=== PATIENT | male | born 1950 | race Caucasian/White ===

== ENCOUNTER → 2016-10-23 | Outpatient (CLI) | payer OTHER ==
[~2016-10-23] MED LIST: ACET-24 PO; ASPCH81 PO; ASPEC81 PO; ASPI81TA28 PO; ATEN-173 PO; CLB200 PO; FRRG PO; GLC/500 PO; MULT-890 PO; ONDA8TAB6 PO; OXYSR10 PO; PRLSR20 PO; RXC5 PO; SIMV40TA2 PO
[2016-10-23 17:46] LABS: BLOOD UREA NITROGEN 19 mg/dl (7-18); BUN/CREATININE RATIO 17.7 (10-20); CALCIUM 9.1 mg/dl (8.5-10.1); CARBON DIOXIDE 26 mmol/L (21-32); CHLORIDE 108 mmol/L (98-107); GLUCOSE 100 mg/dl (70-99); POTASSIUM 4.4 mmol/L (3.5-5.1); SODIUM 143 mmol/L (136-145)
[2016-10-24 06:00] LABS: ESTIMATED AVERAGE GLUCOSE 151 mg/dl; HA1C FLAG Normal (Normal)
--- NOTE | 2016-11-26 11:13 | History & Physical Bridge Note ---
H&P Re-Evaluation Bridge Note: I have examined the patient, reviewed the History & Physical and in the interval since the performance of the History & Physical I have noted the following changes of clinical significance: No changes noted
== END | disposition home or self-care (01) ==
LOC: C.LABPVFM 11:25
PROVIDERS: ATTEND Nurse Practitioner
DX: E11.9 Type 2 diabetes mellitus without complications (principal)

== ENCOUNTER 2017-01-21 06:52 | Inpatient (IN) | payer OTHER ==
[2017-01-12 13:00] VITALS: BMI 34.0
[2017-01-12 13:18] LABS: BASO % 0.4 %; BASO ABS # 0.03 K/uL (0-0.2); COMPLETE YES; EOS % 1.5 %; HEMATOCRIT 43.2 % (42-52); IG% 0.1 %; LYMPH % 32.7 %; LYMPH ABS # 2.23 K/uL (1.2-3.4); MEAN CELL VOLUME 83.7 fL (80-100); MEAN CORPUSCULAR HEMOGLOBIN 26.9 pg (25-34); MEAN CORPUSCULAR HGB CONC 32.2 g/dl (32-36); MEAN PLATELET VOLUME 10.1 fL (7.4-10.4); MONO % 10.1 %; NEUT % 55.2 %; PLATELET COUNT 193 K/uL (130-400); RED BLOOD COUNT 5.16 M/uL (4.7-6.1); WHITE BLOOD COUNT 6.82 K/uL (4.8-10.8)
[2017-01-12 13:28] LABS: ESTIMATED AVERAGE GLUCOSE 143 mg/dl; HA1C FLAG Normal (Normal)
[2017-01-12 13:32] LABS: PARTIAL THROMBOPLASTIN RATIO 1.1; PROTHROMBIN TIME (PATIENT) 10.3 SECONDS (9.0-12.0)
--- NOTE | 2017-01-12 13:35 | PAT Medication Instructions ---
Service Date Jan 12, 2017. Current Home Medication List Aspirin (Aspirin Ec), 81 MG PO HS Atenolol (Tenormin), 12.5 MG PO QPM Metformin Hcl (Glucophage), 500 MG PO BID Omeprazole (Prilosec), 20 MG PO QAM Simvastatin (Zocor), 40 MG PO QPM Medication Instructions For Your Scheduled Surgery - Hold the following medications 48 hours prior to surgery: Metformin Hcl (Glucophage), 500 MG PO BID - Take the following medications the morning of surgery with a sip of water OTHERWISE NOTHING TO EAT OR DRINK AFTER MIDNIGHT: Omeprazole (Prilosec), 20 MG PO QAM - Take the following medications as scheduled the night before surgery: Aspirin (Aspirin Ec), 81 MG PO HS Atenolol (Tenormin), 12.5 MG PO QPM Simvastatin (Zocor), 40 MG PO QPM If you have any questions please call us at [phone] or [phone] or [phone]
[2017-01-12 14:59] LABS: URINE APPEARANCE CLEAR (CLEAR); URINE BILIRUBIN NEG (NEG); URINE COLOR YELLOW; URINE NITRITE NEG (NEG); URINE PH 6.5 (4.5-7.5); URINE SPECIFIC GRAVITY 1.033 (1.000-1.030); UROBILINOGEN NEG (NEG)
[2017-01-12 15:03] LABS: MANUAL MICROSCOPIC REQUIRED? NO; REVIEW REQ? NO
[2017-01-12 15:12] LABS: BUN/CREATININE RATIO 18.5 (10-20); CALCIUM 9.1 mg/dl (8.5-10.1); POTASSIUM 3.9 mmol/L (3.5-5.1)
--- NOTE | 2017-01-20 14:33 | History and Physical ---
History & Physical Date Jan 20, 2017. Chief Complaint Left knee pain History of Present Illness The patient is a 66 year old male with complaints of left knee pain and disability. He's had previous successful right total knee arthroplasty which has done well. he has failed conservative care for his left knee and desires to proceed with left total knee arthoplasty Past Medical/Surgical History Medical Problems: (1) Right knee DJD Additional History Hepatic Disease: No Endocrine Disorder: Yes (Type II DM) Kidney Disease: No Hypertension: Yes Heart Disease: No Bleeding Tendencies: No Infectious Diseases: No Other: Hypercholesterolemia Allergies Coded Allergies: NO KNOWN DRUG ALLERGIES (Verified Allergy, Unknown, NONE, 01/12/17) Tuna (Verified Adverse Reaction, Unknown, NAUSEA AND VOMITING, 01/12/17) Home Medications Scheduled Aspirin (Aspirin Ec), 81 MG PO HS Atenolol (Tenormin), 12.5 MG PO QPM Metformin Hcl (Glucophage), 500 MG PO BID Omeprazole (Prilosec), 20 MG PO QAM Simvastatin (Zocor), 40 MG PO QPM Physical Examination Skin: warm/dry Eyes: normal inspection, EOMI ENT: normal ENT inspection Head: normocephalic Neck: supple, no adenopathy Respiratory/Chest: lungs clear Cardiovascular: regular rate, rhythm Abdomen / GI: normal bowel sounds, non tender Extremities: + pertinent finding (Left knee varus aligned, medial compartment pain, ROM ~ 0-125 degrees) Addiitonal Comments: Xrays: left knee varus aligned, bone on bone arthritis medial compartment with osteophytes, osteophytes PF joint Diagnosis Left knee arthritis Plan of Treatment Left total knee arthroplasty
[~2017-01-21] VITALS: Ht 165.1 cm; Wt 92.9 kg
[2017-01-21] VITALS (11 sets, daily range): BP systolic 100–148; BP diastolic 63–82; PULSE 66–77; TEMP 34.8–36.7; O2SAT 93–97; Ht 165.1 cm; Wt 92.9 kg
[~2017-01-21 06:52] MED LIST changes: -ACET-24 PO; +ACETAMINOPHEN 500 MG TAB PO SCH; -ASPCH81 PO; -ASPEC81 PO; +BUPIVACAINE 0.25% 30 ML VIAL ONE; +BUPIVACAINE 0.5 % 5 MG/1 ML PF 10ML VIAL ONE; +CEFAZOLIN 2000 MG/60 ML D5W 60 ML IV SCH; -CLB200 PO; +CeleBREX 200 MG CAP PO SCH; +DEXAMETHASONE 4 MG TAB PO SCH; -FRRG PO; +GABAPENTIN 300 MG CAP PO SCH; +LACTATED RINGER'S 1000ML 1,000 ML IV SCH; +LACTATED RINGER'S 1000ML 500 ML IV ONE; +METOCLOPRAMIDE HCL 10 MG TAB PO SCH; +MISSING PHYSICIAN SIGNATURE ON ORDER SCH; -MULT-890 PO; -ONDA8TAB6 PO; -OXYSR10 PO; +ROPIVACAINE 5MG/ML 30 ML 150 MG, BUPIVACAINE/EPINEPHR 0.5% MPF 30 ML, KETOROLAC TROMETH... INFIL SCH; -RXC5 PO
[2017-01-21] MEDS ORDERED: EpHEDrine SULFATE INJ 50 MG/ML AMP IV PRN (08:00)
[2017-01-21] MEDS ORDERED: ONDANSETRON INJ 2 MG/ML 2 ML VIAL IV PRN ×2 (08:00→12:00)
[2017-01-21] MEDS ORDERED: ATROPINE SULFATE 0.1 MG/ML 5ML SYR IV PRN (08:00)
[2017-01-21] MEDS ORDERED: MIDAZOLAM HCL 1 MG/ML 2ML VIAL ONE ×2 (09:19)
[2017-01-21] MEDS: TRANEXAMIC ACID INJ 1,000 MG in SODIUM CHLORIDE 0.9% 100ML 100 ML IV SCH ×2 (09:23→13:49)
[2017-01-21] MEDS ORDERED: LIDOCAINE HCL 2% 2 ML VIAL (20MG/ML) ONE (09:55)
[2017-01-21] MEDS ORDERED: PROPOFOL IV EMULSION 10 MG/ML 20 ML VIAL IV ONE (09:55)
[2017-01-21] MEDS ORDERED: ORTHO JOINT ANESTHETIC ONE (10:02)
[2017-01-21] MEDS ORDERED: BACITRACIN 50000 UNIT VIAL ONE (10:02)
[2017-01-21] MEDS ORDERED: POVIDONE-IODINE OP SOLN 30 ML BTL ONE ×2 (10:02)
[2017-01-21] MEDS ORDERED: PHENYLEPHRINE HCL INJ 10 MG/ML VIAL ONE (10:53)
--- NOTE | 2017-01-21 11:12 | [facility] Operative Report ---
Operative Report Operative Date Jan 21, 2017. Pre-Operative Diagnosis Right knee degenerative joint disease Post-Operative Diagnosis Right knee degenerative joint disease Procedure(s) Performed Right Total Knee Arthroplasty femoral size 4 tibia size 3 tibial Monik 9 patella size [address] 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 The limb was exsanguinated with an Esmarch bandage tourniquet was inflated to 300 mmHg. A longitudinal incision was made, soft tissue was sharply dissected electrocautery and Aquamantis was used for hemostasis. A median parapatellar incision was made, the patella was everted and the knee was flexed. Fat pad was removed and the medial face of the tibia was cleared of soft tissue using a Bovie and a Gonzales was retracted back using a blunt Gayle. Next, the extramedullary alignment guide was placed and the proximal tibial osteotomy was made using oscillating saw. This bone fragment was removed using a knife and the bone tenaculum. Next, attention was turned to the distal femur. The drill was used to get access to the femoral canal. The flexible intramedullary guide elsie was placed and the distal femoral cut was made with a 8 mm resection. Following this the femur was sized and the appropriate size was determined and the distal femoral chamfer cuts were made using the oscillating saw. Next the intercondylar notch was cut using the appropriate guide. This bone fragment was removed. A lamina riding double was used to gain access to the menisci which were removed. Aquamantis was used posteriorly to gain hemostasis. Appropriate sized trial femoral component was impacted into position and the tibia was presented using a blunt Gayle and a sharp Gayle. Tibial component sized and the appropriate one was chosen and used. The tibia was prepared using the appropriately sized punch and a mallet and the tibia was reduced using an appropriately sized plastic trial. This gave good reproduction of soft tissue tension and full extension. Next the patellar was sized and the appropriate reaming blade was used to ream the patella, and a the appropriate size patella guide to drill 3 holes for the pegs. Patella was then placed and he was taken through full range of motion and the patella tracked well. All trial components were removed the joint mix was utilized posteriorly and pericapsular. A bone plug was prepared and impacted into the femoral canal and pulsatile irrigation was used throughout the knee. Cement was mixed, final components were obtained and cemented in position and excess cement was removed. The Knee was held in extension while cement hardened. A Hemovac drain was placed. Following this the wound was closed using #1 Vicryl #2 FiberWire for the extensor mechanism and 0 Dexon for subcutaneous tissue and rinku for skin a Silverlon dressing was applied. The patient was taken to recovery in stable in good condition he tolerated the procedure well. I attest to the content of the Intraoperative Record and any orders documented therein. Any exceptions are noted below.
[2017-01-21] MEDS ORDERED: METOCLOPRAMIDE HCL INJ 5 MG/ML 2 ML VIAL IV PRN (12:00)
[2017-01-21] MEDS ORDERED: ZOLPIDEM TARTRATE 5 MG TAB PO PRN (12:00)
[2017-01-21] MEDS ORDERED: MAGNESIUM HYDROXIDE SUSP 30 ML UDC PO PRN (12:00)
[2017-01-21] MEDS ORDERED: TAMSULOSIN HCL 0.4 MG CAP PO PRN (12:00)
[2017-01-21] MEDS ORDERED: MoRPHine SULFATE 2 MG/ML CARP IV PRN ×2 (12:00→13:30)
[2017-01-21] MEDS ORDERED: ALUMINUM/MAGNESIUM/SIMETH (MAALOX MAX) 30 ML UDC PO PRN (12:00)
[2017-01-21] MEDS ORDERED: PHARMACY GLYCEMIC MGMT CONSULT SCH (12:10)
--- NOTE | 2017-01-21 12:24 | Anesthesiology Progress Note ---
Anesthesia Post Op Note Date & Time Jan 21, 2017 at 12:24 Vital Signs Pain Intensity: 0 Vital Signs Past 12 Hours Date Time Temp Pulse Resp B/P (MAP) Pulse Ox O2 Delivery O2 Flow Rate FiO2 01/21/17 12:15 36.0 74 21 99/56 95 Nasal Cannula 2 01/21/17 12:05 70 19 105/59 97 Nasal Cannula 2 01/21/17 11:55 74 14 90/61 97 Mask 10 01/21/17 11:48 36.2 74 21 100/60 98 Mask 10 01/21/17 07:27 36.5 72 20 148/82 97 Room Air Notes Mental Status: alert / awake / arousable, participated in evaluation Pt Amnestic to Procedure: Yes Nausea / Vomiting: adequately controlled Pain: adequately controlled Airway Patency, RR, SpO2: stable & adequate BP & HR: stable & adequate Hydration State: stable & adequate Neuraxial Anesthesia: was administered, sensory block is resolving Anesthetic Complications: no major complications apparent
--- NOTE | 2017-01-21 12:45 | DIAGNOSTIC IMAGING REPORT ---
LEFT KNEE 1 OR 2 VIEWS ROUTINE HISTORY: 66 years Male status post left total knee arthroplasty COMPARISON: None available TECHNIQUE: Portable AP and crosstable lateral views of the left knee FINDINGS: Status post total knee arthroplasty with patellar resurfacing. Alignment is satisfactory. There is no periprostatic fracture identified. Surgical drain noted about the knee. Expected postsurgical swelling and deep tissue air is seen. IMPRESSION: Status post left knee total joint arthroplasty with patellar resurfacing. There is satisfactory alignment. The above report was generated using voice recognition software. It may contain grammatical, syntax or spelling errors. Electronically signed by: Faisal Carranza M.D. 01/21/2017 12:44 PM Dictated Date/Time: 01/21/2017 12:43 PM
[2017-01-21] MEDS ORDERED: MoRPHine SULFATE 10 MG/ML CARP/VIAL IV PRN (13:30)
[2017-01-21] MEDS ORDERED: MoRPHine SULFATE 4 MG/ML 1 ML CARP\\VIAL IV PRN (13:30)
[2017-01-21] MEDS: FERROUS GLUCONATE 324 MG TAB PO SCH ×2 (13:39→18:12)
[2017-01-21] MEDS: ACETAMINOPHEN 500 MG TAB PO SCH ×3 (13:39→22:35)
[2017-01-21] MEDS ORDERED: D5W AND 1/2NSS + 20MEQ KCL 1,000 ML IV SCH (14:00)
[2017-01-21] MEDS ORDERED: GLUCOSE 10 TABS/TUBE PO PRN (14:30)
[2017-01-21] MEDS ORDERED: GLUCAGON FOR INJ 1 MG VIAL SQ PRN (14:30)
[2017-01-21] MEDS ORDERED: DEXTROSE 50% 50 ML SYR IV PRN (14:30)
[2017-01-21] MEDS ORDERED: GLUCOSE 40% GEL 15 GM TUBE PO PRN (14:30)
--- NOTE | 2017-01-21 15:20 | Pharmacy Progress Note ---
Glycemic Control Intl Consult Date of Service Jan 21, 2017. Scope Glycemic Pharmacist consulted by Michael Cordoba PA-C on 01/21/17 for glycemic control and to write orders per [facility] inpatient glycemic control protocol Objective Weight (Kilograms): 92.900 Accuchecks BSG (last 24hrs): Test 01/21/17 07:24 01/21/17 11:57 Bedside Glucose 133 mg/dl (70-99) 129 mg/dl (70-99) HbA1c Test 01/12/17 12:57 Hemoglobin A1c 6.6 % (4.5-5.6) H Recent Pertinent Medications Outpatient Anti-diabetic Regimen: * Metformin 500 mg PO BID Risk Factors for Insulin Resistance: * Steroids: Orthomix in OR (contains 4 mg dexamethasone) + Dexamethasone 8 mg PO pre-op. Ordered 10 mg IV x 1 on 01/22 am. * Infection: Ancef ishan-op * IVF: D51/2 NS + 20 meq KCL @ 100 ml/hr * Recent Surgery: POD #0 L-TKA * Diet: T2DM Assessment & Plan ASSESSMENT: * 66 yr old T2DM male s/p L-TKA today. * Patient is maintained on metformin as an out patient with adequate glycemic control. * Will hold oral agents for admission and utilize SQ basal bolus insulin regimen which is the recommended regimen for inpatient glycemic control. * Will initiate weight based insulin dosing for insulin mireya patient patient ( weight and stress of 1-2) * I anticipate patient only needing Lantus x 24hr to help with steroid induced hyperglycemia. Ordered to hold Lantus for BSG less than 100 mg/dL. * ADA & AACE recommend a goal blood sugar range 140-180 mg/dl for the majority of critically ill & non-critically ill patients. However, more stringent targets may be selected in individual cases. Will utilize more stringent goal of 110-140 mg/dl based on patient age & comorbidities. Additionally, tighter glycemic control is warranted to facilitate wound/infection healing. PLAN FOR INPATIENT GLYCEMIC CONTROL: * Holding outpatient oral diabetes medications * consider resuming on 01/22 if patient tolerating oral diet/normal renal function * Basal insulin: * Lantus 0-15 units SQ BID * 0 units for BSG less than 100 mg/dL * 10 units for BSG 100 - 140 mg/dL * 15 units for BSG greater than 140 mg/dL * Bolus Insulin: NOVOLOG ACHS * Goal Range: Low 110 mg/dL - High 140 mg/dL * Correction Factor: 20 mg/dL/unit * Nutritional / Prandial insulin per carb ratio of 1 unit per 7 grams CHO consumed * Add overnight check with coverage at 0200 LOOKING AHEAD TO DISCHARGE: * Patient can likely continue home regimen of metformin on discharge due to adequate out patient control (A1c 6.6% - 10/13/16) * Consider maximizing metformin dose as tolerated * may increase by 500 mg per week to goal of 1000 mg PO BID * administer with food to limit GI side effects * Please note that the plan above was derived based on current level of insulin resistance and hospital stress. These recommendations are appropriate for inpatient admission only. Plan of care upon discharge will need to be reassessed to avoid potential outpatient hypo/hyperglycemia. Thank you.
[2017-01-21] MEDS ORDERED: NURSING VERBAL MED ORDER ONE (15:30)
[2017-01-21] MEDS: KETOROLAC TROMETHAMINE 15 MG/ML VIAL IV. SCH ×2 (15:44→22:01)
[2017-01-21] MEDS: SODIUM CHLORIDE 0.9% 1000ML 1,000 ML IV SCH (15:44)
[2017-01-21] MEDS ORDERED: INSULIN GLARGINE SOLOSTAR 100 UNITS/ML 3 ML PEN SC SCH (16:30)
[2017-01-21] MEDS: CEFAZOLIN IV 2,000 MG in DEXTROSE 5% 50ML 50 ML IV SCH (18:05)
[2017-01-21] MEDS: INSULIN ASPART 100 UNITS/ML 3 ML PEN SC SCH ×2 (18:09→22:40)
[2017-01-21] MEDS: OXYCODONE HCL 10 MG TABCR (OXYCONTIN) PO SCH ×2 (21:00→21:57)
[2017-01-21] MEDS ORDERED: DOCUSATE SODIUM 100 MG CAP PO SCH (21:00)
[2017-01-21] MEDS ORDERED: ASPIRIN 81 MG ECTAB PO SCH (21:00)
[2017-01-21] MEDS: SIMVASTATIN 40 MG TAB PO SCH ×2 (22:00→22:52)
[2017-01-21] MEDS: DOCUSATE SODIUM 100 MG/10 ML UDC PO SCH (22:52)
[2017-01-21] MEDS: ASPIRIN 81 MG CHEW PO SCH (22:52)
[2017-01-21] MEDS ORDERED: NURSING DECISION MEDICATION ORDER SCH (23:45)
[2017-01-21] MEDS ORDERED: COUGH DROP (SUGAR FREE) LOZ 24 LOZ/1 BOX ONE (23:50)
[2017-01-22] MEDS: CEFAZOLIN IV 2,000 MG in DEXTROSE 5% 50ML 50 ML IV SCH (01:42)
[2017-01-22] MEDS: SODIUM CHLORIDE 0.9% 1000ML 1,000 ML IV SCH (01:42)
[2017-01-22] MEDS ORDERED: INSULIN ASPART 100 UNITS/ML 3 ML PEN SC ONE (02:00)
[2017-01-22] MEDS ORDERED: COUGH DROP (SUGAR FREE) LOZ 24 LOZ/1 BOX PO PRN (03:00)
[2017-01-22] MEDS: OXYCODONE HCL IR 5 MG TAB (IMMEDIATE RELEASE) PO PRN ×2 (03:05→21:06)
[2017-01-22 03:30] VITALS: BP 111/67; PULSE 77; TEMP 36.2; O2SAT 94
[2017-01-22] MEDS: KETOROLAC TROMETHAMINE 15 MG/ML VIAL IV. SCH ×2 (04:15→10:44)
[2017-01-22] MEDS: ACETAMINOPHEN 500 MG TAB PO SCH ×3 (05:43→21:09)
[2017-01-22 06:08] LABS: HEMATOCRIT 35.4 % (42-52); MEAN CELL VOLUME 83.7 fL (80-100); MEAN CORPUSCULAR HEMOGLOBIN 26.5 pg (25-34); MEAN CORPUSCULAR HGB CONC 31.6 g/dl (32-36); MEAN PLATELET VOLUME 10.1 fL (7.4-10.4); PLATELET COUNT 178 K/uL (130-400); RED BLOOD COUNT 4.23 M/uL (4.7-6.1); WHITE BLOOD COUNT 14.71 K/uL (4.8-10.8)
[2017-01-22 06:40] LABS: BUN/CREATININE RATIO 16.9 (10-20); CALCIUM 7.8 mg/dl (8.5-10.1); CREATININE 1.2 mg/dl (0.60-1.40); POTASSIUM 4.3 mmol/L (3.5-5.1)
--- NOTE | 2017-01-22 06:50 | Clinical Documentation Query ---
CLINICAL DOCUMENTATION QUERY The operative record appears conflictual with itself H&P notes this patient is here for left TKR. Operative record states patient has undergone right TKR, but left leg was prepped and draped. Operative reports from OR staff state this patient has undergone left TKR. Please review and if necessary amend operative record to reflect correct knee. Thank You, Smith Lopez RN [phone]
[2017-01-22 07:25] VITALS: BP 113/65; PULSE 73; TEMP 36.3; O2SAT 94
[2017-01-22] MEDS ORDERED: DEXAMETHASONE INJ 10 MG in SYRINGE 0 ML IV SCH (07:30)
--- NOTE | 2017-01-22 07:49 | Orthopedic Progress Note ---
Orthopedic Progress Note Date of Service Jan 22, 2017. Subjective Post OP Day: 1 Reports: feeling well Objective N/V intact, dressing C/D/I (Hemovac in place), toes mobile Date Time Temp Pulse Resp B/P (MAP) Pulse Ox O2 Delivery O2 Flow Rate FiO2 01/22/17 03:30 36.2 77 16 111/67 (82) 94 Room Air 01/21/17 23:33 36.4 66 16 107/65 (79) 94 Room Air 01/21/17 23:30 Room Air 01/21/17 21:48 68 110/72 (85) 95 Room Air 01/21/17 20:19 36.5 70 16 121/70 (87) 96 Nasal Cannula 2.0 01/21/17 16:00 Nasal Cannula 2.0 01/21/17 15:45 34.8 69 18 100/63 (75) 94 Nasal Cannula 2.0 01/21/17 14:45 67 18 100/63 (75) 94 01/21/17 13:46 36.4 01/21/17 13:45 73 18 118/76 (90) 96 Nasal Cannula 2.0 01/21/17 13:25 71 18 102/64 (77) 94 Room Air 01/21/17 12:45 Nasal Cannula 2.0 01/21/17 12:45 93 Nasal Cannula 2.0 01/21/17 12:43 36.7 77 18 110/71 (84) 93 Nasal Cannula 2.0 01/21/17 12:25 73 18 90/57 96 Nasal Cannula 2 01/21/17 12:15 36.0 74 21 99/56 95 Nasal Cannula 2 01/21/17 12:05 70 19 105/59 97 Nasal Cannula 2 01/21/17 11:55 74 14 90/61 97 Mask 10 01/21/17 11:48 36.2 74 21 100/60 98 Mask 10 Laboratory Results 24 Hours: Test 01/22/17 05:43 Hematocrit 35.4 % Hemoglobin 11.2 g/dL Assessment & Plan Assessment: 66 yo male stable POD #1 s/p left TKA Plan: 1. Med management 2. DVT prophylaxis- ASA, SCDs 3. PT/OT 4. D/C planning- pt interested in [facility]
--- NOTE | 2017-01-22 07:52 | Discharge Instructions ---
Discharge Instructions Date of Service Jan 22, 2017. Admission Reason for Admission: Left Knee Osteoarthritis Discharge Discharge Diagnosis / Problem: Left knee arthritis Discharge Goals Goal(s): Decrease discomfort, Improve function Activity Recommendations Activity Limitations: as noted below Weightbearing Status: Left weightbearing (as tolerated) . Instructions / Follow-Up Instructions / Follow-Up ACTIVITY RECOMMENDATIONS: SELF CARE INSTRUCTIONS AFTER TOTAL KNEE REPLACEMENT A. You may need to continue a physical therapy program after discharge from the hospital. There are several options available to you. Your doctor will assist you in selecting the best one for you. 1. An out-patient facility 2 to 3 times a week for therapy or home therapy. 2. Continue working on all exercises taught to you in the hospital. Your goals should be to increase bending of your knee to 90 degrees and beyond and to fully straighten your knee. B. You may progress at your own pace from walking with a walker or crutches to a cane; then to no assistive devices. C. Make walking a part of your daily routine. Be up as much as comfortable with rest periods throughout the day. Rest with leg elevation is very important. Use the ice wrap frequently for the first 3-4 weeks. D. There are no restrictions on activities. 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 E. Wear the long elastic stockings (ESTHER hose) 20 hours a day for 2 weeks after surgery. They can be removed several times a day for laundering and for a bath. F. You may shower, no tub baths until cleared by your doctor. SPECIAL CARE INSTRUCTIONS: VERY IMPORTANT TO READ AND REVIEW A. There are a few signs you need to watch for after you are home. Call [facility] [employer] if you notice any of the followin. Increased severe knee pain. Some pain is expected especially when you exercise. 2. Increased swelling in your leg or knee; pain or swelling of the calf muscle in either lower leg. 3. Any fluid drainage from the incision. 4. Shortness of breath or chest pain. B. Please call [facility] [employer] at if you have any concerns or questions about your operation or recovery. The doctor or his nurse will return your call promptly. C. You must take antibiotics before dental work, bladder, bowel or other surgery. Your doctor will provide you with a permanent care to carry describing this precaution. IMPORTANT: * REMEMBER TO TAKE ASPIRIN, 81 MG, TWICE DAILY FOR 4 WEEKS UNLESS OTHERWISE DIRECTED. THIS IS YOUR BLOOD THINNER. * HIGH RISK PATIENTS MAY BE PRESCRIBED A STRONGER BLOOD THINNER. THIS WILL BE PROVIDED AT DISCHARGE. * CALL IF INCREASED PAIN, REDNESS, DRAINAGE OR FEVER GREATER THAT 101. * WEAR ESTHER HOSE 20 HOURS PER DAY FOR 2 WEEKS. Silverlon- This is a large adhesive bandage that contains silver ions. This helps your incision heal by fighting off bacteria and protecting it from the outside environment. You are permitted to shower with this dressing. This will remain on your incision for 7 days and then should be removed. Some visible blood or drainage through the dressing window is normal. If there is significant drainage or leaking noted before the 7 days notify your doctor's office immediately. Once removed, keep incision clean and dry. If there is any drainage or redness noted, please call your surgeon. FOLLOW UP VISIT: If appointment is not already scheduled: Please call [facility] [employer] to make a follow-up appointment for 2 weeks after your surgery at . Current Hospital Diet Patient's current hospital diet: Diabetes Type 2 Diet Discharge Diet Recommended Diet: Diabetes Type 2 Diet Procedures Procedures Performed: Left total knee arthroplasty Pending Studies Studies pending at discharge: no Laboratory Results Hemoglobin A1c Test 01/12/17 12:57 Range/Units Estimated Average Glucose 143 mg/dl Hemoglobin A1c 6.6 H 4.5-5.6 % Medical Emergencies . Who to Call and When: Medical Emergencies: If at any time you feel your situation is an emergency, please call 911 immediately. . Non-Emergent Contact Non-Emergency issues call your: Surgeon Call Non-Emergent contact if: temperature is above 101.5, your pain is not controlled, wound has increased drainage, wound has increased redness . "Provider Documentation" section prepared by Mono Cordoba PA-C. . VTE Core Measure Inpt VTE Proph given/why not?: Other Anticoagulation (ASA 81mg bid), T.E.D. Stockings, SCD's [place] Drug Monitoring Program Search Results: patient reviewed within database, no issues identified
--- NOTE | 2017-01-22 08:10 | Anesthesiology Progress Note ---
Anesthesia Post Op Note Date & Time Jan 22, 2017 at 08:09 Vital Signs Pain Intensity: 3.0 Vital Signs Past 12 Hours Date Time Temp Pulse Resp B/P (MAP) Pulse Ox O2 Delivery O2 Flow Rate FiO2 01/22/17 07:25 36.3 73 16 113/65 (81) 94 Room Air 01/22/17 03:30 36.2 77 16 111/67 (82) 94 Room Air 01/21/17 23:33 36.4 66 16 107/65 (79) 94 Room Air 01/21/17 23:30 Room Air 01/21/17 21:48 68 110/72 (85) 95 Room Air 01/21/17 20:19 36.5 70 16 121/70 (87) 96 Nasal Cannula 2.0 Notes Mental Status: alert / awake / arousable, participated in evaluation Pt Amnestic to Procedure: Yes Nausea / Vomiting: adequately controlled Pain: adequately controlled Airway Patency, RR, SpO2: stable & adequate BP & HR: stable & adequate Hydration State: stable & adequate Neuraxial Anesthesia: sensory block resolved Anesthetic Complications: no major complications apparent
[2017-01-22] MEDS: DOCUSATE SODIUM 100 MG/10 ML UDC PO SCH ×2 (08:51→21:01)
[2017-01-22] MEDS: ASPIRIN 81 MG CHEW PO SCH ×2 (08:52→21:00)
[2017-01-22] MEDS: PANTOprazole SOD 40 MG TAB PO SCH (08:52)
[2017-01-22] MEDS: FERROUS GLUCONATE 324 MG TAB PO SCH ×3 (08:52→18:22)
[2017-01-22] MEDS: MULTIVITAMIN TAB PO SCH (08:53)
[2017-01-22] MEDS: OXYCODONE HCL 10 MG TABCR (OXYCONTIN) PO SCH ×2 (08:57→20:49)
[2017-01-22] MEDS ORDERED: INSULIN GLARGINE SOLOSTAR 100 UNITS/ML 3 ML PEN SC ONE (09:00)
[2017-01-22] MEDS: INSULIN ASPART 100 UNITS/ML 3 ML PEN SC SCH ×4 (09:07→21:16)
[2017-01-22 11:55] VITALS: BP 117/69; PULSE 79; TEMP 36.6; O2SAT 95
--- NOTE | 2017-01-22 12:47 | Pharmacy Progress Note ---
Glycemic Control Progress Note Date of Service Jan 22, 2017. Scope Glycemic Pharmacist consulted for glycemic control to write orders per [facility] inpatient glycemic control protocol. Objective Accuchecks BSG (last 24hrs): Test 01/21/17 11:57 01/21/17 16:55 01/21/17 20:38 01/22/17 01:37 Bedside Glucose 129 mg/dl (70-99) 185 mg/dl (70-99) 193 mg/dl (70-99) 135 mg/dl (70-99) Test 01/22/17 05:43 01/22/17 08:15 Random Glucose 130 mg/dl (70-99) Bedside Glucose 122 mg/dl (70-99) HbA1c: Test 01/12/17 12:57 Hemoglobin A1c 6.6 % (4.5-5.6) H Recent Pertinent Medications The patient is currently receiving: * Basal insulin: Lantus 15 units 01/22/17 PM * Correctional Insulin: Novolog Correction per scale ACHS Goal Range: Low 110 mg/dL - High 140 mg/dL Correction Factor: 20 mg/dL/unit * Prandial insulin: Per carb ratio of 1 unit per 7 grams CHO consumed Outpatient Anti-Diabetic Meds metformin 500 mg PO BID Assessment & Plan ASSESSMENT: * See progress note from 01/21/2017 for more background info, in short: Mr Zelaya is a 66 y/o M admitted 01/21/2017 for a L TKA. * Pt receiving SQ basal bolus insulin regimen for hyperglycemia secondary to baseline DM (outpatient regimen on hold), POD #1 for L TKA, dexamethasone 10 mg IV x 1 this morning * Patient is currently receiving an average of 29 units of insulin per day * 15 units of basal insulin * 14 units of prandial/correctional insulin * BSGs ranging 129 - 193 mg/dl over the past 24hrs * Changes needed to insulin regimen: * AM Fasting BSG = 130 mg/dl. This is in within goal range for patient based on inpatient targets and co-morbidities. Since the patient is receiving dexamethasone 10 mg IV x 1 today, I am concerned for elevated blood sugars. Will utilize weight-based stress of 2 Lantus dosing and schedule Lantus 15 units SQ BID. I suspect the Lantus requirements will decrease on 01/23/2017 or 24 hours post-dexamethasone administration. * Post-prandial BSGs are in range therefore no changes needed to CF/CR. Even though the patient is receiving an additional dose of dexamethasone today, the current bolus parameters are between weight-based stress of 2 and stress of 3. As the patient received dexamethasone and his lunch blood sugar was significantly higher than his morning blood sugar, the parameters of bolus insulin was tighten. An additional 0200 dose will be added to monitor for overnight hyperglycemia. * Total daily dose is currently unknown as less than 24 hours of data available. * Additional notes / comments: may resume oral metformin tomorrow if kidney function remains stable (currently creatinine is increased from 1.0 mg/dL to 1.2 mg/dL). PLAN FOR INPATIENT GLYCEMIC CONTROL: * Continuing Lantus 15 units SQ BID * TIGHTEN correction factor of 15 mg/dl/unit * TIGHTEN carb ratio of 1 unit per 6 grams CHO consumed * Continuing goal range to Low 110 mg/dL - High 140 mg/dL RECOMMENDATIONS FOR DISCHARGE: * See note from 01/21/2017 * Please note that the plan above was derived based on current level of insulin resistance and hospital stress. These recommendations are appropriate for inpatient admission only. Plan of care upon discharge will need to be reassessed to avoid potential outpatient hypo/hyperglycemia. Thank you.
[2017-01-22 15:00] VITALS: BP 114/74; PULSE 75; TEMP 36.5; O2SAT 96
[2017-01-22] MEDS ORDERED: INSULIN GLARGINE SOLOSTAR 100 UNITS/ML 3 ML PEN SC SCH (21:00)
[2017-01-22] MEDS: CeleBREX 200 MG CAP PO SCH (21:01)
[2017-01-22] MEDS: SIMVASTATIN 40 MG TAB PO SCH (21:02)
[2017-01-23 00:31] VITALS: BP 112/64; PULSE 79; TEMP 36.4; O2SAT 95
[2017-01-23] MEDS ORDERED: INSULIN ASPART 100 UNITS/ML 3 ML PEN SC SCH (02:00)
[2017-01-23 06:24] VITALS: BP 104/66; PULSE 68; TEMP 36.5; O2SAT 96
[2017-01-23] MEDS: ACETAMINOPHEN 500 MG TAB PO SCH ×3 (06:28→21:47)
[2017-01-23] MEDS: FERROUS GLUCONATE 324 MG TAB PO SCH ×3 (07:49→17:53)
[2017-01-23] MEDS: PANTOprazole SOD 40 MG TAB PO SCH (07:49)
[2017-01-23] MEDS: MULTIVITAMIN TAB PO SCH (07:49)
[2017-01-23] MEDS: CeleBREX 200 MG CAP PO SCH ×2 (07:49→21:01)
[2017-01-23] MEDS: ASPIRIN 81 MG CHEW PO SCH ×2 (07:50→21:02)
[2017-01-23] MEDS: DOCUSATE SODIUM 100 MG/10 ML UDC PO SCH ×2 (07:50→21:02)
[2017-01-23] MEDS: INSULIN ASPART 100 UNITS/ML 3 ML PEN SC SCH ×4 (08:00→20:58)
[2017-01-23] MEDS: OXYCODONE HCL 10 MG TABCR (OXYCONTIN) PO SCH ×2 (08:01→21:12)
[2017-01-23] MEDS ORDERED: INSULIN GLARGINE SOLOSTAR 100 UNITS/ML 3 ML PEN SC ONE (09:00)
--- NOTE | 2017-01-23 09:48 | Orthopedic Progress Note ---
Orthopedic Progress Note Date of Service Jan 23, 2017. Subjective Post OP Day: 2 Reports: feeling well, pain controlled w PO medications, Denies: chest pain, SOB , nausea / vomiting, light headedness, calf pain Objective calves soft nontender, N/V intact, capillary refill less than 2 sec., dressing C /D/I (silverlon), A&O x3, toes mobile Date Time Temp Pulse Resp B/P (MAP) Pulse Ox O2 Delivery O2 Flow Rate FiO2 01/23/17 07:40 Room Air 01/23/17 06:24 36.5 68 16 104/66 (79) 96 Room Air 01/23/17 00:35 Room Air 01/23/17 00:31 36.4 79 16 112/64 (80) 95 Room Air 01/22/17 16:20 Room Air 01/22/17 15:00 36.5 75 16 114/74 (87) 96 Room Air 01/22/17 11:55 36.6 79 16 117/69 (85) 95 Room Air 01/22/17 10:34 Room Air Assessment & Plan Assessment: 66 yo male stable POD #2 s/p left TKA Plan: 1. Med management 2. DVT prophylaxis- ASA, SCDs 3. PT/OT 4. D/C planning today for [facility] Inhouse Planning Pain Management: Oxycontin, Oxy IR DVT Prophylaxis: ASA Discharge Planning Discharge Planning: rehab hospital Pain Management: Oxycontin, Oxy IR DVT Prophylaxis: TEDs, SCDs, ASA Therapy: Physical Therapy
[2017-01-23] MEDS ORDERED: CLB200 PO (09:56)
[2017-01-23] MEDS ORDERED: ASPCH81 PO (09:56)
[2017-01-23] MEDS ORDERED: RXC5 PO (09:56)
[2017-01-23] MEDS ORDERED: ONDA8TAB6 PO (09:56)
[2017-01-23] MEDS ORDERED: FRRG PO (09:56)
[2017-01-23] MEDS ORDERED: OXYSR10 PO (09:56)
[2017-01-23] MEDS ORDERED: MULT-890 PO (09:56)
[2017-01-23] MEDS ORDERED: ACET-24 PO (09:56)
--- NOTE | 2017-01-23 13:06 | Pharmacy Progress Note ---
Glycemic Control Progress Note Date of Service Jan 23, 2017. Scope Glycemic Pharmacist consulted for glycemic control to write orders per [facility] inpatient glycemic control protocol. Objective Accuchecks BSG (last 24hrs): Test 01/22/17 16:52 01/22/17 20:41 01/23/17 02:09 01/23/17 06:54 Bedside Glucose 201 mg/dl (70-99) 194 mg/dl (70-99) 174 mg/dl (70-99) 86 mg/dl (70-99) Test 01/23/17 12:08 Bedside Glucose 135 mg/dl (70-99) HbA1c: Test 01/12/17 12:57 Hemoglobin A1c 6.6 % (4.5-5.6) H Recent Pertinent Medications The patient is currently receiving: * Basal insulin: Lantus 15 units SQ BID on 01/22/17 then Lantus 10 units this morning * Correctional Insulin: Novolog Correction per scale ACHS Goal Range: Low 110 mg/dL - High 140 mg/dL Correction Factor: 15 mg/dL/unit * Prandial insulin: Per carb ratio of 1 unit per 6 grams CHO consumed Outpatient Anti-Diabetic Meds metformin 500 mg PO BID Assessment & Plan ASSESSMENT: * See progress note from 01/21/2017 for more background info, in short: Mr Zelaya is a 66 y/o M admitted 01/21/2017 for a L TKA. * Pt receiving SQ basal bolus insulin regimen for hyperglycemia secondary to baseline DM (outpatient regimen on hold), POD #2 for L TKA, dexamethasone 10 mg IV x 1 yesterday morning. * Patient is currently receiving an average of 80 units of insulin per day * 30 units of basal insulin * 50 units of prandial/correctional insulin * BSGs ranging 122-201 mg/dl over the past 24hrs * Changes needed to insulin regimen: * AM Fasting BSG = 86 mg/dl. This is in within goal range for patient based on inpatient targets and co-morbidities. Since the patient received dexamethasone 10 mg IV x 1 yesterday, I am concerned that the patient's blood sugars may still be elevated today. Even though his fasting was 86 mg/dL, Lantus 10 units was scheduled for this morning. A scale was scheduled for tonight as I am unsure how long the effects of dexamethasone will last. * Post-prandial BSGs are in range; however, as dexamethasone was given yesterday, the correctional insulin parameters were loosened slightly as the effects of dexamethasone diminish. * Total daily dose is currently unknown as the patient received dexamethasone elevated the insulin requirements. * Additional notes / comments: may resume oral metformin tomorrow if kidney function remains stable and urine output is steady PLAN FOR INPATIENT GLYCEMIC CONTROL: * Lantus 10 units SQ x 1 dose; Lantus 0-10 units SQ tonight (0 units if blood sugar 180 mg/dL or less; 10 units if blood sugar greater than 180 mg/dL) * LOOSEN correction factor of 20 mg/dl/unit * LOOSENcarb ratio of 1 unit per 7 grams CHO consumed * Continuing goal range to Low 110 mg/dL - High 140 mg/dL RECOMMENDATIONS FOR DISCHARGE: * See note from 01/21/2017 * Please note that the plan above was derived based on current level of insulin resistance and hospital stress. These recommendations are appropriate for inpatient admission only. Plan of care upon discharge will need to be reassessed to avoid potential outpatient hypo/hyperglycemia. Thank you.
[2017-01-23 15:46] VITALS: BP 125/79; PULSE 60; TEMP 36.3; O2SAT 98
[2017-01-23] MEDS: OXYCODONE HCL IR 5 MG TAB (IMMEDIATE RELEASE) PO PRN (17:54)
[2017-01-23 21:00] VITALS: BP 125/74; PULSE 70
[2017-01-23] MEDS ORDERED: INSULIN GLARGINE SOLOSTAR 100 UNITS/ML 3 ML PEN SC SCH (21:00)
[2017-01-23] MEDS: SIMVASTATIN 40 MG TAB PO SCH (21:01)
[2017-01-23 23:25] VITALS: BP 122/77; PULSE 72; TEMP 36.3; O2SAT 95
[2017-01-24] MEDS: ACETAMINOPHEN 500 MG TAB PO SCH (05:19)
[2017-01-24 07:45] VITALS: BP 102/67; PULSE 65; TEMP 36.5; O2SAT 94
--- NOTE | 2017-01-24 08:26 | Orthopedic Progress Note ---
Orthopedic Progress Note Date of Service Jan 24, 2017. Subjective Post OP Day: 3 Reports: feeling well, pain controlled w PO medications, Denies: chest pain, SOB , nausea / vomiting, light headedness, calf pain Additional Notes: Notes some stiffness in knee today Objective calves soft nontender, N/V intact, capillary refill less than 2 sec., dressing C /D/I, A&O x3, toes mobile Date Time Temp Pulse Resp B/P (MAP) Pulse Ox O2 Delivery O2 Flow Rate FiO2 01/24/17 07:52 Room Air 01/24/17 07:45 36.5 65 16 102/67 (79) 94 Room Air 01/24/17 00:15 Room Air 01/23/17 23:25 36.3 72 16 122/77 (92) 95 Room Air 01/23/17 21:00 70 125/74 (91) 01/23/17 15:46 36.3 60 18 125/79 (94) 98 Room Air 01/23/17 15:20 Room Air Assessment & Plan Assessment: 66 yo male stable POD #3 s/p left TKA Plan: 1. Med management 2. DVT prophylaxis- ASA, SCDs 3. PT/OT 4. D/C planning today for [facility] if bed available Inhouse Planning Pain Management: Oxycontin, Oxy IR DVT Prophylaxis: ASA Discharge Planning Discharge Planning: rehab hospital Pain Management: Oxycontin, Oxy IR DVT Prophylaxis: TEDs, SCDs, ASA Therapy: Physical Therapy
[2017-01-24] MEDS: DOCUSATE SODIUM 100 MG/10 ML UDC PO SCH (08:42)
[2017-01-24] MEDS: FERROUS GLUCONATE 324 MG TAB PO SCH (08:42)
[2017-01-24] MEDS: PANTOprazole SOD 40 MG TAB PO SCH (08:42)
[2017-01-24] MEDS: ASPIRIN 81 MG CHEW PO SCH (08:43)
[2017-01-24] MEDS: MULTIVITAMIN TAB PO SCH (08:43)
[2017-01-24] MEDS: CeleBREX 200 MG CAP PO SCH (08:43)
[2017-01-24] MEDS: INSULIN ASPART 100 UNITS/ML 3 ML PEN SC SCH (08:45)
[2017-01-24] MEDS: OXYCODONE HCL 10 MG TABCR (OXYCONTIN) PO SCH (08:45)
--- NOTE | 2017-01-24 09:29 | Pharmacy Progress Note ---
Glycemic Control Progress Note Date of Service Jan 24, 2017. Scope Glycemic Pharmacist consulted for glycemic control to write orders per [facility] inpatient glycemic control protocol. Objective Accuchecks BSG (last 24hrs): Test 01/23/17 12:08 01/23/17 16:59 01/23/17 20:41 01/24/17 08:13 Bedside Glucose 135 mg/dl (70-99) 80 mg/dl (70-99) 82 mg/dl (70-99) 92 mg/dl (70-99) HbA1c: Test 01/12/17 12:57 Hemoglobin A1c 6.6 % (4.5-5.6) H Recent Pertinent Medications The patient is currently receiving: * Basal insulin: Lantus 10 units twice daily yesterday, no Lantus today * Correctional Insulin: Novolog Correction per scale ACHS Goal Range: Low 110 mg/dL - High 140 mg/dL Correction Factor: 20 mg/dL/unit * Prandial insulin: Per carb ratio of 1 unit per 7 grams CHO consumed Outpatient Anti-Diabetic Meds metformin 500 mg PO BID Assessment & Plan ASSESSMENT: * See progress note from 01/21/2017 for more background info, in short: Mr Zelaya is a 66 y/o M admitted 01/21/2017 for a L TKA. * Pt receiving SQ basal bolus insulin regimen for hyperglycemia secondary to baseline DM (outpatient regimen on hold), POD 32 for L TKA * Patient is currently receiving an average of 30 units of insulin per day * 10 units of basal insulin * 20 units of prandial/correctional insulin * BSGs ranging 82-135 mg/dl over the past 24hrs * Changes needed to insulin regimen: * AM Fasting BSG = 92 mg/dl. This is in within goal range for patient based on inpatient targets and co-morbidities. No Lantus will be scheduled for today as patient only required 10 units yesterday. * Post-prandial BSGs are in range; however, as dexamethasone was given two days ago, the correctional insulin parameters were loosened slightly as the effects of dexamethasone diminish. * Metformin will be started today as urine output is stable. PLAN FOR INPATIENT GLYCEMIC CONTROL: * LOOSEN correction factor of 25 mg/dl/unit * LOOSENcarb ratio of 1 unit per 8 grams CHO consumed * Continuing goal range to Low 110 mg/dL - High 140 mg/dL * START metformin 500 mg PO BID RECOMMENDATIONS FOR DISCHARGE: * Patient can likely continue home regimen of metformin on discharge due to adequate out patient control (A1c 6.6% - 10/13/16) * Consider maximizing metformin dose as tolerated * may increase by 500 mg per week to goal of 1000 mg PO BID * administer with food to limit GI side effects * Please note that the plan above was derived based on current level of insulin resistance and hospital stress. These recommendations are appropriate for inpatient admission only. Plan of care upon discharge will need to be reassessed to avoid potential outpatient hypo/hyperglycemia. Thank you.
[2017-01-24 10:56] VITALS: BP 102/67; PULSE 65; TEMP 36.5; O2SAT 94
[2017-01-24] MEDS ORDERED: METFORMIN HCL 500 MG TAB PO SCH (12:00)
--- NOTE | 2017-01-28 03:54 | DISCHARGE SUMMARY ---
CHIEF COMPLAINT: Left knee pain. Please see complete history and physical examination. HOSPITAL COURSE: The patient underwent left total knee arthroplasty without complication. He tolerated the procedure well and was discharged to recovery room in stable condition. His postoperative course was relatively uneventful. His postoperative pain was reasonably well controlled with a combination of spinal anesthesia, adductor canal block, intraoperative joint injection, IV, and oral pain medications. He was started on aspirin for DVT prophylaxis. He also utilized ESTHER stockings and SCDs for additional prophylaxis. His H&H was stable and did not require transfusion. His surgical drain was discontinued by postoperative day 2, surgical dressing will remain in place for approximately 7 days postoperative. He tolerated postoperative physical therapy reasonably well as he was bending his knee and ambulating appropriately. He was discharged to [facility] on postop day #3. He will continue his physical therapy there prior to discharge home. He will continue his aspirin for DVT prophylaxis and follow up in our office in approximately 10-14 days for his initial postop evaluation. PAM
== END 2017-01-24 11:15 | DRG 470 ==
LOC: C.ACU 06:52 → C.3E 07:52 → ENRESERV 12:22
PROC: 0SRD0J9 Replacement of Left Knee Joint with Synthetic Substitute, Cemented, Open Approach (ICD-10-PCS; principal; 2017-01-21 09:45)
DX: M17.12 Unilateral primary osteoarthritis, left knee (principal); E11.9 Type 2 diabetes mellitus without complications; E78.00 Pure hypercholesterolemia, unspecified; Z91.013 Allergy to seafood; Z79.82 Long term (current) use of aspirin; Z79.899 Other long term (current) drug therapy; Z79.84 Long term (current) use of oral hypoglycemic drugs; Z96.651 Presence of right artificial knee joint

== ENCOUNTER → 2017-04-14 | Outpatient (CLI) | payer OTHER ==
[~2017-04-14] MED LIST changes: +ACET-24 PO; -ACETAMINOPHEN 500 MG TAB PO SCH; +ASPCH81 PO; -ASPI81TA28 PO; -BUPIVACAINE 0.25% 30 ML VIAL ONE; -BUPIVACAINE 0.5 % 5 MG/1 ML PF 10ML VIAL ONE; -CEFAZOLIN 2000 MG/60 ML D5W 60 ML IV SCH; +CLB200 PO; -CeleBREX 200 MG CAP PO SCH; -DEXAMETHASONE 4 MG TAB PO SCH; +FRRG PO; -GABAPENTIN 300 MG CAP PO SCH; -LACTATED RINGER'S 1000ML 1,000 ML IV SCH; -LACTATED RINGER'S 1000ML 500 ML IV ONE; -METOCLOPRAMIDE HCL 10 MG TAB PO SCH; -MISSING PHYSICIAN SIGNATURE ON ORDER SCH; +MULT-890 PO; +ONDA8TAB6 PO; +OXYSR10 PO; -ROPIVACAINE 5MG/ML 30 ML 150 MG, BUPIVACAINE/EPINEPHR 0.5% MPF 30 ML, KETOROLAC TROMETH... INFIL SCH; +RXC5 PO
[2017-04-14 12:59] LABS: BLOOD UREA NITROGEN 18 mg/dl (7-18); CALCIUM 9.4 mg/dl (8.5-10.1); CARBON DIOXIDE 26 mmol/L (21-32); CHLORIDE 105 mmol/L (98-107); GLUCOSE 108 mg/dl (70-99); SODIUM 139 mmol/L (136-145)
[2017-04-14 13:03] LABS: ESTIMATED AVERAGE GLUCOSE 143 mg/dl; HA1C FLAG Normal (Normal)
== END | disposition home or self-care (01) ==
LOC: C.LABPVFM 07:30
PROVIDERS: ATTEND Nurse Practitioner
DX: Z00.00 Encounter for general adult medical examination without abnormal findings (principal); E78.5 Hyperlipidemia, unspecified; E11.9 Type 2 diabetes mellitus without complications

== ENCOUNTER → 2017-09-22 | Outpatient (CLI) | payer OTHER ==
[~2017-09-22] MED LIST changes: -ONDA8TAB6 PO
[2017-09-22 12:37] LABS: BASO % 0.5 %; BASO ABS # 0.03 K/uL (0-0.2); EOS % 1.1 %; EOS ABS # 0.06 K/uL (0-0.5); HEMATOCRIT 41.6 % (42-52); HEMOGLOBIN 13.6 g/dL (14.0-18.0); IG# 0.01 K/uL (0.00-0.02); LYMPH % 33.3 %; LYMPH ABS # 1.85 K/uL (1.2-3.4); MEAN CELL VOLUME 82.9 fL (80-100); MEAN CORPUSCULAR HEMOGLOBIN 27.1 pg (25-34); MEAN CORPUSCULAR HGB CONC 32.7 g/dl (32-36); MEAN PLATELET VOLUME 10.4 fL (7.4-10.4); MONO % 16.5 %; MONO ABS # 0.92 K/uL (0.11-0.59); NEUT % 48.4 %; NEUT ABS # 2.69 K/uL (1.4-6.5); PLATELET COUNT 189 K/uL (130-400); RED CELL DISTRIBUTION WIDTH CV 16.4 % (11.5-14.5); RED CELL DISTRIBUTION WIDTH SD 49.3 fL (36.4-46.3); WHITE BLOOD COUNT 5.56 K/uL (4.8-10.8)
[2017-09-22 12:47] LABS: PTT PATIENT 25.7 SECONDS (21.0-31.0)
[2017-09-22 12:53] LABS: BLOOD UREA NITROGEN 18 mg/dl (7-18); CALCIUM 8.9 mg/dl (8.5-10.1); CARBON DIOXIDE 25 mmol/L (21-32); CREATININE 1.06 mg/dl (0.60-1.40); GLUCOSE 190 mg/dl (70-99); POTASSIUM 4.1 mmol/L (3.5-5.1); SODIUM 138 mmol/L (136-145)
== END | disposition home or self-care (01) ==
LOC: C.LABPVFM 09:21
PROVIDERS: ATTEND Student in an Organized Health Care Education/Training Program
DX: R94.39 Abnormal result of other cardiovascular function study (principal)

== ENCOUNTER → 2018-01-24 | Outpatient (CLI) | payer OTHER ==
[2018-01-24 13:22] LABS: HEMOGLOBIN A1C 6.9 % (4.5-5.6)
[2018-01-24 13:25] LABS: ALBUMIN 3.8 gm/dl (3.4-5.0); ALKALINE PHOSPHATASE 65 U/L (45-117); ALT/SGPT 29 U/L (12-78); AST/SGOT 24 U/L (15-37); BLOOD UREA NITROGEN 14 mg/dl (7-18); CALCIUM 8.5 mg/dl (8.5-10.1); CARBON DIOXIDE 26 mmol/L (21-32); CHOLESTEROL 146 mg/dl (0-200); CREATININE 1.05 mg/dl (0.60-1.40); GLUCOSE 108 mg/dl (70-99); LDL CHOLESTEROL CALCULATED 77 mg/dl; POTASSIUM 4.1 mmol/L (3.5-5.1); SODIUM 141 mmol/L (136-145); TOTAL PROTEIN 6.8 gm/dl (6.4-8.2)
== END | disposition home or self-care (01) ==
LOC: C.LABPVFM 07:17
PROVIDERS: ATTEND Family Medicine
DX: E78.5 Hyperlipidemia, unspecified (principal); E11.9 Type 2 diabetes mellitus without complications; K21.9 Gastro-esophageal reflux disease without esophagitis; I25.10 Atherosclerotic heart disease of native coronary artery without angina pectoris